=== PATIENT | female | born 1995 | race Caucasian/White ===

== ENCOUNTER 2018-08-09 15:14 | Emergency (ER) | payer MEDICAID ==
[2018-08-09 15:22] VITALS: BP 110/80; Ht 162.6 cm
== END 2018-08-09 17:29 | disposition home or self-care (01) ==
LOC: ED 15:14
DX: F07.81 Postconcussional syndrome (principal); H53.8 Other visual disturbances
CPT/HCPCS: Q0162

== ENCOUNTER 2018-10-11 17:08 | Emergency (ER) | payer MEDICAID ==
[~2018-10-11] VITALS: Ht 162.6 cm; Wt 50.8 kg
[2018-10-11 17:23] VITALS: Ht 162.6 cm; Wt 50.8 kg
[2018-10-11 19:10] VITALS: BP 125/81
== END 2018-10-11 19:10 | disposition home or self-care (01) ==
LOC: ED 17:08
DX: K59.00 Constipation, unspecified (principal); R10.84 Generalized abdominal pain; R14.0 Abdominal distension (gaseous)
CPT/HCPCS: J1885; Q0092

== ENCOUNTER 2020-10-05 21:35 | Emergency (ER) | payer BC, SELFPAY ==
[~2020-10-05] VITALS: Ht 162.6 cm; Wt 54.4 kg
[2020-10-05 21:37] VITALS: Ht 162.6 cm; Wt 54.4 kg
[2020-10-06 02:53] VITALS: BP 155/91
== END 2020-10-06 02:53 | disposition home or self-care (01) ==
LOC: ED 21:35
DX: R51.9 Headache, unspecified (principal)
CPT/HCPCS: J0780; J1200